=== PATIENT | male | born 1955 | race Caucasian/White ===

== ENCOUNTER → 2020-08-25 | Outpatient (CLI) | payer SELFPAY ==
[2020-08-09 15:00] VITALS: BP 143/83
[~2020-08-25] MED LIST: APIX5TAB PO; ASPI-630 PO; ATOR20TA58 PO; ATOR40TA PO; CLOP75TA PO; FAMO-63 PO; LEVO500T8 PO
== END ==
LOC: LAB 13:35
PROVIDERS: ATTEND Specialist
DX: Z01.812 Encounter for preprocedural laboratory examination (principal); Z20.828 Contact with and (suspected) exposure to other viral communicable diseases
CPT/HCPCS: U0003

== ENCOUNTER → 2020-08-26 | Outpatient (CLI) | payer SELFPAY ==
[2020-08-09 15:00] VITALS: BP 143/83
[~2020-08-26] MED LIST changes: +HYDR-3164 PO
[2020-08-26 12:07] LABS: BASO # 0.1 x10^3/uL (0.0-0.2); BASO % 1 % (0-3); EOS # 0.3 x10^3/uL (0.0-0.7); EOS % 4 % (0-3); HEMATOCRIT 39.1 % (39.0-53.0); HEMOGLOBIN 13.5 g/dL (13.0-17.5); LYMPH # 1.9 x10^3/uL (1.0-4.8); LYMPH % 21 % (24-48); MEAN CORPUSCULAR HEMOGLOBIN 31 pg (25-35); MEAN CORPUSCULAR HGB CONC 35 g/dL (31-37); MEAN CORPUSCULAR VOLUME 89 fL (79-100); MONO # 0.7 x10^3/uL (0.0-1.1); MONO % 8 % (0-9); NEUT # 6.1 x10^3/uL (1.8-7.7); NEUT % 66 % (31-73); PLATELET COUNT 304 x10^3/uL (140-400); RED CELL DISTRIBUTION WIDTH 15.7 % (11.5-14.5); WHITE BLOOD COUNT 9.2 x10^3/uL (4.0-11.0)
[2020-08-26 12:28] LABS: GFR 75.2; POTASSIUM 3.9 mmol/L (3.5-5.1)
== END | disposition home or self-care (01) ==
LOC: SURG 11:17
PROVIDERS: ATTEND Specialist
DX: T87.89 Other complications of amputation stump (principal); L03.115 Cellulitis of right lower limb; J43.9 Emphysema, unspecified; I10 Essential (primary) hypertension; E78.5 Hyperlipidemia, unspecified; I73.9 Peripheral vascular disease, unspecified; E78.00 Pure hypercholesterolemia, unspecified; M19.90 Unspecified osteoarthritis, unspecified site; I70.8 Atherosclerosis of other arteries; F17.210 Nicotine dependence, cigarettes, uncomplicated; Z86.718 Personal history of other venous thrombosis and embolism; Z79.82 Long term (current) use of aspirin; Y83.5 Amputation of limb(s) as the cause of abnormal reaction of the patient, or of later complication, without mention of misadventure at the time of the procedure
CPT/HCPCS: 36415; 80048; 85025; 97605; G0463

== ENCOUNTER 2020-08-29 06:06 | Day surgery (SDC) | payer SELFPAY ==
[~2020-08-29] VITALS: Ht 188 cm; Wt 79.4 kg
[~2020-08-29 06:06] MED LIST changes: -HYDR-3164 PO
[2020-08-29] MEDS ORDERED: ONDANSETRON PF 4 MG/2 ML VIAL. ONE (07:00)
[2020-08-29] MEDS ORDERED: ONDANSETRON PF 4 MG/2 ML VIAL. IV PRN (07:00)
[2020-08-29] MEDS ORDERED: SEVOFLURANE 31 TO 60 MINUTES. IH ONE (07:00)
[2020-08-29] MEDS ORDERED: IV RINGERS,LACTATED 1000ML 1,000 ML IV SCH ×2 (07:00)
[2020-08-29] MEDS ORDERED: PROCHLORPERAZINE 10 MG/2 ML VIAL. IV PRN ×2 (07:00)
[2020-08-29] MEDS ORDERED: DEXAMETHASONE SOD PHOS 4 MG/ML VIAL ONE (07:00)
[2020-08-29] MEDS ORDERED: LIDOCAINE 2% PF 5 ML VIAL. ONE (07:00)
[2020-08-29] MEDS ORDERED: fentaNYL PF VIAL 100 MCG/2 ML VIAL ONE ×2 (07:00→08:02)
[2020-08-29] MEDS ORDERED: fentaNYL PF VIAL 100 MCG/2 ML VIAL IV PRN ×3 (07:00)
[2020-08-29] MEDS ORDERED: HYDROmorphone 2 MG/ML VIAL IV PRN (07:00)
[2020-08-29] MEDS ORDERED: LIDOCAINE 1% PF 2 ML VIAL. ID PRN ×2 (07:00)
[2020-08-29] MEDS ORDERED: MORPHINE SULFATE 2 MG/ML VIAL. IV PRN (07:00)
[2020-08-29] MEDS ORDERED: PROPOFOL 10 MG/ML (20ML) VIAL. IV ONE (07:00)
[2020-08-29] MEDS ORDERED: LIDOCAINE 1% PF 30 ML VIAL. ONE (07:01)
[2020-08-29] MEDS ORDERED: silver sulfADIAZINE 1% CREAM 25GM TUBE. TP ONE (07:01)
[2020-08-29] MEDS ORDERED: PHENYLEPHRINE in 0.9% NACL PF 1 MG/10 ML SYRINGE. IV ONE (07:30)
--- NOTE | 2020-08-29 07:31 | DISCH ---
DISCHARGE INSTRUCTIONS Condition on Discharge Condition on Discharge: Stable Activity After Discharge Activity Instructions for Disc: Activity as tolerated Exercise Instruction after Dis: Progress as tolerated Weight Bearing Status after Di: Non weight bearing Diet after Discharge Diet after Discharge: Cardiac Diet Texture: Regular Liquid Texture: Thin Liquid Wound Incision Care Wound/Incision Care: Keep wound elevated Wound Care Equipment: Wound vac Follow-Up Follow up with: Dr. Call in 2-3 weeks [phone] call for appointment Treatment/Equipment after DC Adaptive Equipment Issued: JULIANNE Valles COMPUTER NUMERICAL CONTROL GRINDER Aug 29, 2020 07:31
--- NOTE | 2020-08-29 08:04 | PDOC ---
BRIEF OPERATIVE NOTE Date: Aug 29, 2020 Pre-Op Diagnosis PVD, non-healing TMA Post-Op Diagnosis same Procedure Performed Right foot wound/TMA debridement Surgeon Dr. Call Internal Review And Audit Compliance Julianne Eric NP Anesthesia Type: General Blood Loss 3cc Specimens Obtained none Findings wound bed with good granulation tissue post debridement Complications none Operative Note see dictated note JULIANNE ERIC MONORAIL HELPER Aug 29, 2020 08:04
[2020-08-29] MEDS: fentaNYL PF VIAL 100 MCG/2 ML VIAL IV PRN ×2 (08:06→08:11)
[2020-08-29] MEDS ORDERED: MORPHINE SULFATE 2 MG/ML VIAL. ONE ×2 (08:10→08:58)
[2020-08-29] MEDS: MORPHINE SULFATE 2 MG/ML VIAL. IV PRN ×4 (08:13→09:00)
[2020-08-29] MEDS ORDERED: HYDR-3164 PO (08:19)
[2020-08-29] MEDS ORDERED: HYDROmorphone 2 MG/ML VIAL ONE (08:19)
[2020-08-29] MEDS: HYDROmorphone 2 MG/ML VIAL IV PRN ×3 (08:21→08:47)
[2020-08-29] MEDS ORDERED: HYDROcodone/APAP 5/325MG 1 TAB TABLET ONE (08:58)
[2020-08-29] MEDS ORDERED: HYDROcodone/APAP 5/325MG 1 TAB TABLET PO ONE (09:00)
[2020-08-29 09:38] VITALS: BP 2/1
--- NOTE | 2020-08-29 10:31 | OP ---
DATE OF SURGERY: 08/29/2020 PREOPERATIVE DIAGNOSES: 1. Peripheral vascular disease with right foot wound. 2. Status post right transmetatarsal amputation. 3. Status post right popliteal and tibial artery thrombectomy. POSTOPERATIVE DIAGNOSES: 1. Peripheral vascular disease with right foot wound. 2. Status post right transmetatarsal amputation. 3. Status post right popliteal and tibial artery thrombectomy. PROCEDURE: 1. Excisional debridement of right dorsal foot wound including skin, subcutaneous tissues, and tendons (30 cm2). 2. Wound VAC placement. SURGEON: Cristopher Akbar MD WATER TAXI DRIVER: Deepa Castelan APRN ANESTHESIA: General. INDICATIONS: The patient is a 65-year-old male with peripheral arterial disease, who presented initially with right popliteal and tibial artery occlusion. He underwent surgical thrombectomy as well as eventual foot debridement including transmetatarsal amputation. He has had a wound VAC over the wound. The dorsal foot wound has shown some improvement, but still has some necrotic tissue including the exposed tendons. He presents for elective debridement. FINDINGS: The medial and lateral incisions from the transmetatarsal amputation are intact. There is some granulation around the periphery of the dorsal foot wound. There is some exposed tendons that were sharply excised. All nonviable tissue excised down to a viable base including the areas where the tendons were excised. Wound measured 7.5 cm x 4.5 cm x 1 cm depth. DESCRIPTION OF OPERATION: The patient was taken to the operating room and placed supine on the operating table. He underwent a general anesthetic. His right foot and lower leg were prepped and draped in normal sterile fashion. Forceps and scissors were used to excise nonviable tissue on the dorsal foot wound. This included subcutaneous tissue and exposed tendons. Sharp curette was then used to sharply excise fibrinous buildup over the area of granulation at the periphery as well as sharply excise the tissue down to viable base where tendons were previously excised. Wound measurements as noted above. The wound itself was then carefully cleaned and wound VAC was reapplied using Silver GranuFoam over the wound. Aquacel Ag was placed over the sutures. The patient tolerated the procedure well and there were no complications. ESTIMATED BLOOD LOSS: ____ mL. SPECIMEN: None. CRISTOPHER AKBAR MD DR: [email or web address]/[email or web address] JOB#: [id number] / [id number]
== END 2020-08-29 09:45 | disposition home or self-care (01) ==
LOC: SURG 06:06
PROVIDERS: ATTEND Specialist
DX: I73.89 Other specified peripheral vascular diseases (principal); I74.3 Embolism and thrombosis of arteries of the lower extremities; F17.210 Nicotine dependence, cigarettes, uncomplicated; Z79.82 Long term (current) use of aspirin; Z79.899 Other long term (current) drug therapy; Z98.890 Other specified postprocedural states; Z88.1 Allergy status to other antibiotic agents; Z88.8 Allergy status to other drugs, medicaments and biological substances
CPT/HCPCS: 11044; A4461; A7015; J0690; J1100; J1170; J2270; J2370; J2405; J2704; J3010; J3490